=== PATIENT | female | born 2000 | race Two or more races ===

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

== ENCOUNTER 2019-04-16 10:28 | Emergency (ER) | payer MEDICAID ==
[~2019-04-16] VITALS: Ht 154.9 cm; Wt 58.2 kg
[2019-04-16 12:09] VITALS: BP 120/76
== END 2019-04-16 13:01 | disposition home or self-care (01) ==
LOC: ED 12:01
DX: R10.11 Right upper quadrant pain (principal); R11.2 Nausea with vomiting, unspecified
CPT/HCPCS: 36415; 71045; 76700; 80053; 81003; 81025; 83690; 85025; 96374; 96375; 99284; J2270; J2405

== ENCOUNTER 2019-06-25 20:39 | Emergency (ER) | payer MEDICAID ==
[~2019-06-25] VITALS: Ht 154.9 cm; Wt 55.0 kg
--- NOTE | 2019-06-25 22:08 | NUR ---
ROUNDS COMPLETED. UA CC COLLECTED AND SENT TO THE LAB. NO VISIBLE BLD NOTED. YELLOW, CLR.
[2019-06-25 22:16] LABS: BASOPHILS # (AUTO) 0.06 x10^3/uL (0-0.3); BASOPHILS % (AUTO) 1 % (0-1); EOSINOPHILS # (AUTO) 0.18 x10^3/uL (0-0.8); EOSINOPHILS % (AUTO) 2 % (1-7); LYMPHOCYTES # (AUTO) 2.75 x10^3/uL (1-6.1); LYMPHOCYTES % (AUTO) 24 % (22-44); MD NO; MONOCYTES # (AUTO) 0.44 x10^3/uL (0-1.4); MONOCYTES % (AUTO) 4 % (2-9); NEUTROPHILS # (AUTO) 7.94 x10^3/uL (1.8-8.0); NEUTROPHILS % (AUTO) 70 % (42-75); PLATELET COUNT 346 x10^3/uL (130-400); RED BLOOD COUNT 4.36 x10^6/uL (3.82-5.3); RED CELL DISTRIBUTION WIDTH 12.9 % (9.6-15.2)
[2019-06-25 22:26] LABS: ALANINE AMINOTRANSFERASE 19 U/L (12-78); ALBUMIN 3.7 g/dL (3.4-5.0); ANION GAP 5 mmol/L (5-15); CALCIUM 8.7 mg/dL (8.5-10.1); CHLORIDE 109 mmol/L (98-107); CREATININE 0.62 mg/dL (0.55-1.02)
[2019-06-25 22:31] LABS: ALKALINE PHOSPHATASE 85 U/L (45-117); BILIRUBIN,TOTAL 0.2 mg/dL (0.2-1.0); TOTAL PROTEIN 7.3 g/dL (6.4-8.2)
--- NOTE | 2019-06-25 22:51 | NUR ---
PT REQUESTING PAIN MEDICATION. ERP UPDATED.
[2019-06-25 22:59] LABS: MICROSCOPIC AUTO
[2019-06-25 23:00] LABS: CULTURE INDICATED? YES
[2019-06-25 23:50] VITALS: BP 123/79
== END 2019-06-25 23:52 | disposition home or self-care (01) ==
LOC: ED 23:23
DX: N39.0 Urinary tract infection, site not specified (principal)
CPT/HCPCS: 36415; 76830; 80053; 81001; 84703; 85025; 87077; 87086; 87186; 99284

== ENCOUNTER 2019-09-16 16:27 | Emergency (ER) | payer MEDICAID ==
[~2019-09-16] VITALS: Ht 154.9 cm; Wt 53.8 kg
[2019-09-16 16:29] VITALS: BP 106/79
[2019-09-16 17:39] LABS: BASOPHILS # (AUTO) 0.02 x10^3/uL (0-0.3); BASOPHILS % (AUTO) 0 % (0-1); EOSINOPHILS # (AUTO) 0.03 x10^3/uL (0-0.8); EOSINOPHILS % (AUTO) 0 % (1-7); LYMPHOCYTES # (AUTO) 1.11 x10^3/uL (1-6.1); LYMPHOCYTES % (AUTO) 9 % (22-44); MD NO; MEAN CORPUSCULAR HGB CONC 34.4 g/dL (32.4-35.8); MEAN CORPUSCULAR VOLUME 93.2 fL (80-100); MEAN PLATELET VOLUME 8.3 fL (7.4-10.4); MONOCYTES # (AUTO) 0.36 x10^3/uL (0-1.4); MONOCYTES % (AUTO) 3 % (2-9); NEUTROPHILS # (AUTO) 10.28 x10^3/uL (1.8-8.0); NEUTROPHILS % (AUTO) 87 % (42-75); PLATELET COUNT 326 x10^3/uL (130-400); RED CELL DISTRIBUTION WIDTH 12.4 % (9.6-15.2)
[2019-09-16 17:50] LABS: ALANINE AMINOTRANSFERASE 22 U/L (12-78); ALBUMIN 3.9 g/dL (3.4-5.0); ANION GAP 9 mmol/L (5-15); CALCIUM 8.8 mg/dL (8.5-10.1); CHLORIDE 109 mmol/L (98-107); CREATININE 0.58 mg/dL (0.55-1.02)
[2019-09-16] MEDS ORDERED: ACETAMINOPHEN 325 MG TABLET PO ONE (18:00)
[2019-09-16 18:08] LABS: ALKALINE PHOSPHATASE 72 U/L (45-117); BILIRUBIN,TOTAL 0.3 mg/dL (0.2-1.0); TOTAL PROTEIN 7.7 g/dL (6.4-8.2)
[2019-09-16 18:37] LABS: CLUE CELLS NONE SEEN (NONE SEEN); WET PREP WBCS NONE SEEN (FEW)
[2019-09-16] MEDS ORDERED: ACETAMINOPHEN 325 MG TABLET ONE (18:42)
[2019-09-16 18:57] LABS: MICROSCOPIC NOT IND
[2019-09-16 19:02] LABS: CULTURE INDICATED? NO
== END 2019-09-16 19:51 | disposition home or self-care (01) ==
LOC: ED 17:02
DX: O26.891 Other specified pregnancy related conditions, first trimester (principal); R10.9 Unspecified abdominal pain; Z3A.09 9 weeks gestation of pregnancy
CPT/HCPCS: 36415; 76801; 80053; 81003; 84702; 85025; 86901; 87210; 87491; 87591; 87808; 99284

== ENCOUNTER 2019-12-21 23:50 | Emergency (ER) | payer OTHER, MEDICAID ==
[~2019-12-21] VITALS: Ht 154.9 cm; Wt 57.7 kg
[2019-12-21 23:54] VITALS: BP 102/59
[2019-12-22] MEDS ORDERED: ACETAMINOPHEN 325 MG TABLET PO ONE
[2019-12-22] MEDS ORDERED: ACETAMINOPHEN 325 MG TABLET ONE (00:14)
--- NOTE | 2019-12-22 00:24 | NUR ---
BREAK RN: PT MEDICATED PER MAR FOR R HAND PAIN AFTER FALL IN SHOWER. PT STATES SHE LANDED DIRECTLY ON HER HAND. PT STATES SHE IS 21 WEEKS . STATES SHE DID NOT LAND OR HIT HER ABD. DENIES CRAMPING OR BLEEDING. ERP AWARE AND DOES NOT FEEL THE NEED FOR L&D CONSULT AT THIS TIME.
== END 2019-12-22 01:05 | disposition home or self-care (01) ==
LOC: ED 12-22 00:52
DX: O26.892 Other specified pregnancy related conditions, second trimester (principal); S60.221A Contusion of right hand, initial encounter; W01.0XXA Fall on same level from slipping, tripping and stumbling without subsequent striking against object, initial encounter; Z3A.23 23 weeks gestation of pregnancy; Y93.89 Activity, other specified; Y92.098 Other place in other non-institutional residence as the place of occurrence of the external cause; Y99.8 Other external cause status
CPT/HCPCS: 29125; 99283

== ENCOUNTER 2020-01-25 12:48 | Outpatient (CLI) | payer OTHER, MEDICAID ==
[~2020-01-25] VITALS: Ht 154.9 cm; Wt 56.4 kg
[2020-01-25 13:17] VITALS: BP 112/58
== END 2020-01-25 13:57 | disposition home or self-care (01) ==
LOC: LDOP 12:48
PROVIDERS: ATTEND Obstetrics & Gynecology
DX: O36.8120 Decreased fetal movements, second trimester, not applicable or unspecified (principal); Z3A.26 26 weeks gestation of pregnancy
CPT/HCPCS: 99201; G0463

== ENCOUNTER 2020-02-25 14:50 | Outpatient (CLI) | payer OTHER, MEDICAID ==
[~2020-02-25] VITALS: Ht 154.9 cm; Wt 57.2 kg
[2020-02-25 15:04] VITALS: BP 105/56
[2020-02-25 15:32] LABS: MICROSCOPIC INDICATED
== END 2020-02-25 16:45 | disposition home or self-care (01) ==
LOC: LDOP 14:50
PROVIDERS: ATTEND Obstetrics & Gynecology
DX: O26.893 Other specified pregnancy related conditions, third trimester (principal); M54.9 Dorsalgia, unspecified; Z3A.30 30 weeks gestation of pregnancy
CPT/HCPCS: 59025; 81001; 99211; G0463

== ENCOUNTER 2020-03-17 12:50 | Outpatient (CLI) | payer OTHER, MEDICAID ==
[~2020-03-17] VITALS: Ht 154.9 cm; Wt 60.0 kg
[2020-03-17 13:07] VITALS: BP 104/50
[2020-03-17 14:16] LABS: MICROSCOPIC INDICATED
[2020-03-17] MEDS ORDERED: PREN1TAB60 PO (14:31)
== END 2020-03-17 14:40 | disposition home or self-care (01) ==
LOC: LDOP 12:50
PROVIDERS: ATTEND Obstetrics & Gynecology
DX: O42.913 Preterm premature rupture of membranes, unspecified as to length of time between rupture and onset of labor, third trimester (principal); Z3A.33 33 weeks gestation of pregnancy
CPT/HCPCS: 59025; 81001; 84112; 87086

== ENCOUNTER 2020-04-10 23:39 | Outpatient (CLI) | payer OTHER, MEDICAID ==
[~2020-04-10] VITALS: Ht 157.5 cm; Wt 62.7 kg
[~2020-04-10 23:39] MED LIST changes: +PREN1TAB60 PO
[2020-04-10 23:47] VITALS: BP 112/66
== END 2020-04-11 01:17 | disposition home or self-care (01) ==
LOC: LDOP 23:39
PROVIDERS: ATTEND Obstetrics & Gynecology
DX: O62.8 Other abnormalities of forces of labor (principal); Z3A.37 37 weeks gestation of pregnancy
CPT/HCPCS: 59025

== ENCOUNTER 2020-04-20 03:07 | Outpatient (CLI) | payer OTHER, MEDICAID ==
[~2020-04-20] VITALS: Ht 154.9 cm; Wt 65.5 kg
[2020-04-20] MEDS ORDERED: ACET650S21 PO (15:48)
== END 2020-04-20 08:09 | disposition home or self-care (01) ==
LOC: LDOP 03:07
PROVIDERS: ATTEND Obstetrics & Gynecology
DX: O98.513 Other viral diseases complicating pregnancy, third trimester (principal); O62.9 Abnormality of forces of labor, unspecified; Z3A.38 38 weeks gestation of pregnancy; Z20.828 Contact with and (suspected) exposure to other viral communicable diseases
CPT/HCPCS: 59025; 76815; 87635

== ENCOUNTER 2020-04-20 15:27 | Inpatient (IN) | payer OTHER, MEDICAID ==
[~2020-04-20] VITALS: Ht 154.9 cm; Wt 65.4 kg
[2020-04-20] MEDS ORDERED: OXYTOCIN 30U/ 0.9% NaCL 500ML 500 ML IV ONE (15:40)
[2020-04-20] MEDS: D5%-LACTATED RINGERS 1,000 ML IV SCH ×2 (15:40→23:40)
[2020-04-20] MEDS ORDERED: ACET650S21 PO (15:48)
[2020-04-20] MEDS ORDERED: MISOPROSTOL 200 MCG TABLET ONE (15:50)
[2020-04-20] MEDS ORDERED: OXYTOCIN 30U/ 0.9% NaCL 500ML 500 ML ONE ×2 (15:50→23:02)
[2020-04-20] MEDS ORDERED: NEWBORN KIT ONE (15:50)
[2020-04-20] MEDS ORDERED: LIDOCAINE 1%, 20ML ONE (15:50)
[2020-04-20 15:57] VITALS: BP 120/66
[2020-04-20] MEDS ORDERED: ONDANSETRON 2MG/ML, 2ML IVPush PRN (16:00)
[2020-04-20] MEDS ORDERED: TERBUTALINE 1 MG/ML, 1ML SQ PRN (16:00)
[2020-04-20] MEDS ORDERED: FENTANYL PF 100 MCG/2ML IV PRN (16:00)
[2020-04-20] MEDS ORDERED: PLEASE ENTER HEIGHT AND WEIGHT MC SCH (16:00)
[2020-04-20] MEDS ORDERED: TERBUTALINE 1 MG/ML, 1ML IVPush PRN (16:00)
[2020-04-20] MEDS ORDERED: FENTANYL PF 100 MCG/2ML IVPush PRN (16:00)
[2020-04-20] MEDS: LACTATED RINGERS 1,000 ML IV SCH ×3 (16:04→23:40)
[2020-04-20 16:13] LABS: BASOPHILS # (AUTO) 0.04 x10^3/uL (0-0.1); BASOPHILS % (AUTO) 0 % (0-1); EOSINOPHILS # (AUTO) 0.02 x10^3/uL (0-0.4); EOSINOPHILS % (AUTO) 0 % (1-7); LYMPHOCYTES # (AUTO) 1.13 x10^3/uL (1-3.4); LYMPHOCYTES % (AUTO) 8 % (22-44); MD NO; MEAN CORPUSCULAR HEMOGLOBIN 27.2 pg (27.0-34.8); MEAN CORPUSCULAR HGB CONC 32.3 g/dL (32.4-35.8); MEAN PLATELET VOLUME 9.6 fL (7.4-10.4); MONOCYTES # (AUTO) 0.15 x10^3/uL (0.2-0.8); MONOCYTES % (AUTO) 1 % (2-9); NEUTROPHILS # (AUTO) 12.52 x10^3/uL (1.8-6.8); NEUTROPHILS % (AUTO) 90 % (42-75); PLATELET COUNT 246 x10^3/uL (130-400); RED BLOOD COUNT 4.03 x10^6/uL (3.82-5.3); RED CELL DISTRIBUTION WIDTH 14.3 % (9.6-15.2)
[2020-04-20] MEDS: FENTANYL/BUPIV./NS/PF 250 ML EPIDCONT SCH (16:15)
[2020-04-20] MEDS ORDERED: FENTANYL/BUPIV./NS/PF 250 ML EPIDCONT ONE (16:20)
[2020-04-20] MEDS ORDERED: BUPIVACAINE 0.25% ONE (16:20)
[2020-04-20] MEDS ORDERED: LACTATED RINGERS 1,000 ML IVBOLUS PRN (16:30)
[2020-04-20] MEDS ORDERED: EPHEDRINE 50 MG/ML, 1ML IVPush PRN (16:30)
[2020-04-20] MEDS: OXYTOCIN 30U/ 0.9% NaCL 500ML 500 ML IV SCH (22:58)
[2020-04-20] MEDS ORDERED: ONDANSETRON 2MG/ML, 2ML IV PRN (23:00)
[2020-04-20] MEDS ORDERED: MISOPROSTOL 200 MCG TABLET PR PRN (23:00)
[2020-04-20] MEDS ORDERED: SIMETHICONE 80 MG CHEW TAB PO PRN (23:00)
[2020-04-21] MEDS: LACTATED RINGERS 1,000 ML IV SCH ×7 (00:15→23:54)
[2020-04-21] MEDS ORDERED: IBUPROFEN 600 MG TABLET ONE (00:35)
[2020-04-21] MEDS: IBUPROFEN 600 MG TABLET PO PRN ×3 (00:37→23:45)
[2020-04-21 02:11] VITALS: BP 122/78
[2020-04-21 04:41] VITALS: BP 89/41
[2020-04-21] MEDS: OXYcodone/APAP 5/325MG TABLET PO PRN ×3 (05:03→20:36)
[2020-04-21 07:26] VITALS: BP 123/68
[2020-04-21] MEDS: D5%-LACTATED RINGERS 1,000 ML IV SCH ×3 (07:40→23:40)
[2020-04-21] MEDS: PRENATAL VIT/IRON/FA 1 EACH TABLET PO SCH (07:45)
[2020-04-21] MEDS: DOCUSATE 100 MG CAPSULE PO PRN ×2 (07:45→20:35)
[2020-04-21] MEDS: OXYTOCIN 30U/ 0.9% NaCL 500ML 500 ML IV SCH ×2 (08:38→18:58)
[2020-04-21 12:08] VITALS: BP 103/61
[2020-04-21] MEDS: FENTANYL/BUPIV./NS/PF 250 ML EPIDCONT SCH (16:15)
[2020-04-21 19:58] VITALS: BP 109/65
[2020-04-22] MEDS: OXYTOCIN 30U/ 0.9% NaCL 500ML 500 ML IV SCH (04:47)
[2020-04-22] MEDS: IBUPROFEN 600 MG TABLET PO PRN (07:57)
[2020-04-22] MEDS: DOCUSATE 100 MG CAPSULE PO PRN (07:57)
[2020-04-22] MEDS: PRENATAL VIT/IRON/FA 1 EACH TABLET PO SCH (07:57)
[2020-04-22 08:17] VITALS: BP 106/58
[2020-04-22 10:17] LABS: BASOPHILS # (AUTO) 0.11 x10^3/uL (0-0.1); BASOPHILS % (AUTO) 1 % (0-1); EOSINOPHILS # (AUTO) 0.12 x10^3/uL (0-0.4); EOSINOPHILS % (AUTO) 2 % (1-7); LYMPHOCYTES # (AUTO) 1.57 x10^3/uL (1-3.4); LYMPHOCYTES % (AUTO) 20 % (22-44); MD NO; MEAN CORPUSCULAR HEMOGLOBIN 26.6 pg (27.0-34.8); MEAN CORPUSCULAR HGB CONC 31.4 g/dL (32.4-35.8); MEAN CORPUSCULAR VOLUME 84.7 fL (80-100); MONOCYTES # (AUTO) 0.38 x10^3/uL (0.2-0.8); MONOCYTES % (AUTO) 5 % (2-9); NEUTROPHILS # (AUTO) 5.78 x10^3/uL (1.8-6.8); NEUTROPHILS % (AUTO) 73 % (42-75); PLATELET COUNT 241 x10^3/uL (130-400); RED BLOOD COUNT 3.92 x10^6/uL (3.82-5.3); RED CELL DISTRIBUTION WIDTH 14.4 % (9.6-15.2)
[2020-04-22] MEDS ORDERED: IBUP-1222 PO (12:23)
== END 2020-04-22 13:15 | disposition home or self-care (01) | DRG 807 ==
LOC: LDOP 15:27 → LDIP 15:54 → 2NW 04-21 00:40
PROVIDERS: ADMIT Obstetrics & Gynecology; ATTEND Obstetrics & Gynecology
PROC: 10E0XZZ Delivery of Products of Conception, External Approach (ICD-10-PCS; principal; 2020-04-20)
PROC: 3E0R3BZ Introduction of Anesthetic Agent into Spinal Canal, Percutaneous Approach (ICD-10-PCS; 2020-04-20)
PROC: 00HU33Z Insertion of Infusion Device into Spinal Canal, Percutaneous Approach (ICD-10-PCS; 2020-04-20)
DX: O99.02 Anemia complicating childbirth (principal); Z37.0 Single live birth; D50.9 Iron deficiency anemia, unspecified; J45.909 Unspecified asthma, uncomplicated; O99.52 Diseases of the respiratory system complicating childbirth; Z3A.38 38 weeks gestation of pregnancy; Z87.891 Personal history of nicotine dependence
CPT/HCPCS: 36415; 85025; 86592; 86850; 86900; G0378; J3490; J3010; J7120

== ENCOUNTER 2020-08-31 15:38 | Emergency (ER) | payer MEDICAID, OTHER ==
[~2020-08-31] VITALS: Ht 154.9 cm; Wt 54.3 kg
[~2020-08-31 15:38] MED LIST changes: +ACET650S21 PO
--- NOTE | 2020-08-31 18:32 | NUR ---
MARITA a bedside, Dr. Chu at bedside.
[2020-08-31] MEDS ORDERED: IBUPROFEN 600 MG TABLET ONE (18:40)
[2020-08-31] MEDS ORDERED: HYDROcodone/APAP 5/325 TABLET ONE (18:41)
[2020-08-31 18:46] VITALS: BP 121/76
--- NOTE | 2020-08-31 18:56 | NUR ---
Ibuprofen and Mission given. Pt discharged with Rx.
[2020-08-31] MEDS ORDERED: HYDROcodone/APAP 5/325 TABLET PO ONE (19:00)
[2020-08-31] MEDS ORDERED: IBUPROFEN 600 MG TABLET PO ONE (19:00)
== END 2020-08-31 18:58 | disposition home or self-care (01) ==
LOC: ED 17:18
DX: S60.221A Contusion of right hand, initial encounter (principal); W23.0XXA Caught, crushed, jammed, or pinched between moving objects, initial encounter; Y93.89 Activity, other specified; Y92.009 Unspecified place in unspecified non-institutional (private) residence as the place of occurrence of the external cause; Y99.8 Other external cause status
CPT/HCPCS: 99283

== ENCOUNTER 2021-05-18 20:06 | Emergency (ER) | payer MEDICAID ==
[~2021-05-18] VITALS: Ht 154.9 cm; Wt 49.0 kg
[~2021-05-18 20:06] MED LIST changes: -OXYC-302 PO; +OXYC1TAB12 PO
[2021-05-18 20:10] VITALS: BP 110/71
--- NOTE | 2021-05-18 21:34 | NUR ---
PATIENT TO ROOM 31
== END 2021-05-18 22:58 | disposition home or self-care (01) ==
LOC: ED 21:00
DX: U07.1 COVID-19 (principal); B34.9 Viral infection, unspecified
CPT/HCPCS: 87081; 87880; 99283; U0003; U0005

== ENCOUNTER 2021-05-26 21:41 | Emergency (ER) | payer MEDICAID ==
[~2021-05-26] VITALS: Ht 154.9 cm; Wt 52.9 kg
[2021-05-26] MEDS ORDERED: DIAZEPAM 5 MG TABLET ONE (22:22)
[2021-05-26] MEDS ORDERED: KETOROLAC 30 MG/1 ML ONE (22:22)
--- NOTE | 2021-05-27 00:03 | NUR ---
pt to room from lobby
--- NOTE | 2021-05-27 00:19 | NUR ---
pt presents to ed with c/o lower back pain, states hx of chronic back pain and worse last couple of weeks. pt denies GI/ sx. pt a&o, resps even and unlabored, vss, nadn.
[2021-05-27] MEDS ORDERED: DIAZEPAM 5 MG TABLET PO ONE (01:30)
[2021-05-27] MEDS ORDERED: KETOROLAC 30 MG/1 ML IM ONE (01:30)
[2021-05-27] MEDS ORDERED: KETOROLAC 30 MG/1 ML ONE (01:31)
[2021-05-27] MEDS ORDERED: DIAZEPAM 5 MG TABLET ONE (01:31)
[2021-05-27 01:36] VITALS: BP 105/51
--- NOTE | 2021-05-27 01:38 | NUR ---
pt medicated per order, tolerated well. awaiting xr resutls and dispo
--- NOTE | 2021-05-27 02:37 | NUR ---
pt back from xr, resting on agustín hightower nadn. awaiting xr results and dispo
--- NOTE | 2021-05-27 03:09 | NUR ---
report to Esther KIRKL[facility], transfer of care at this time.
== END 2021-05-27 03:33 | disposition home or self-care (01) ==
LOC: ED 21:58
DX: S39.012A Strain of muscle, fascia and tendon of lower back, initial encounter (principal); W18.30XA Fall on same level, unspecified, initial encounter; Y93.89 Activity, other specified; Y92.89 Other specified places as the place of occurrence of the external cause; Y99.8 Other external cause status
CPT/HCPCS: 72110; 96372; 99283; J1885